=== PATIENT | female | born 2000 | race Asian ===

== ENCOUNTER → 2023-09-29 17:22 | Outpatient (REF) | payer OTHER, SELFPAY | LOC: PAVMRI 17:22 | PROVIDERS: ATTENDING PHYSICIAN Physician Assistant Medical | DX: G43.711 Chronic migraine without aura, intractable, with status migrainosus (principal) | CPT/HCPCS: 70551 ==

== ENCOUNTER 2024-06-21 15:23 | Emergency (ER) | payer OTHER, SELFPAY ==
[2024-06-21 15:24] VITALS: BP 112/78
--- NOTE | 2024-06-21 15:46 | ED.GENMED ---
History of Present Illness
General
Chief Complaint: Vaginal Bleeding
Source: patient
Exam Limitations: none
Time Seen by Provider: 06/21/24 15:38
History of Present Illness
History of Present Illness:
See MDM
Past History
Past History
ED Past Medical History: Asthma and Other (Bipolar)
ED Past Surgical History: Appendectomy
Social History
Tobacco: Former smoker
Alcohol: None
Drug: None
Personal: Single
Living: with family
Employment: Employed
Family History
Family History: Diabetes and Other
Phy Exam
Physical Exam
Physical Exam:
See MDM
Course
Orders/Labs/Results
Orders:
Orders
06/21/24 15:44
Test Result ONCE
US Pelvis W Transvag Combined Urgent
Reason For Exam: vaginal bleeding
06/21/24 15:52
Complete Blood Count/With Diff Urgent
06/21/24 16:22
Comprehensive Metabolic Panel Urgent
HCG, Serum Qualitative Screen Urgent
TSH Reflex To Free T4 Urgent
Abnormal Lab Results
06/21/24 06/21/24
15:52 16:22
Abs Immat Gran (auto) 0.1 H 10^3/uL
(0-0.05)
BUN 19 H mg/dl
(7-17)
06/21/24 15:52
06/21/24 16:22
Vital Signs
Initial and Last Documented VS:
Initial Vital Signs
Temp Pulse Resp BP Pulse Ox
97.9 F 93 16 112/78 93
06/21/24 15:24 06/21/24 15:24 06/21/24 15:24 06/21/24 15:24 06/21/24 15:24
Last Documented Vital Signs
Temp Pulse Resp BP Pulse Ox
97.9 F 84 14 105/73 98
06/21/24 15:24 06/21/24 18:22 06/21/24 18:22 06/21/24 18:22 06/21/24 18:22
MDM/Problems Addressed
Differential Diagnosis Includes:
HPI and MDM Narrative:
24-year-old female presenting for heavy menstrual bleeding. Patient is on day 2 of her menstrual cycle. She noted a large clot earlier in the morning. She called her FORESTRY AIDE and she was sent into the emergency department for evaluation. Patient
denies any significant pain but she complains of abdominal cramping. Patient is pretty certain that she is not but is unsure. She is not on blood thinners.
We did discuss that this could be menorrhagia. Will obtain basic blood work to rule out any evidence of hypothyroidism or anemia. Will obtain pelvic ultrasound looking for any evidence of mass or fibroid
Physical exam
General: Well appearing and non-toxic
HEENT: protecting airway
Neck: appears supple
CV: No evidence of cyanosis
Resp: No accessory muscle use
Abd: Non-distended. Soft and nontender
Extremities: No deformities
Neuro: alert
Psych: Normal affect
Skin: Intact
Problems Addressed including Acute and Chronic Conditions affecting care:
1. Heavy menstrual bleeding
Acuity: acute
Prognosis: stable
Details: Likely in setting of menorrhagia. Will obtain hemoglobin and thyroid testing. Will obtain ultrasound to rule out any evidence of uterine mass
Updates
No significant bleeding while in the emergency department. Blood work without clinical significance and ultrasound negative. Patient feels comfortable going home
Differential Diagnosis (but not limited to): Uterine fibroid, menorrhagia
Testing considered: CT abdomen/pelvis with there is no tenderness on exam
Drug therapy (if applicable): OTC meds, please see d/c instruction regarding Rx drugs
Amount and/or Complexity of Data Reviewed
Clinical info obtained from: Patient
External data reviewed: N/A
Labs I independently reviewed (but not limited to): Hemoglobin stable
Radiology: Ultrasound report reviewed
Pulse Ox: not hypoxic
EKG independently reviewed: N/A
Csr Technician: N/A
Critical Care: N/A
Risk of Complication:
Social Determinants of health: Good social support
Discussed with other providers: N/A
Escalation of Care includes Admit/Obs: After being observed in the Emergency Department, pt stable for discharge.
Occasional wrong word or 'sound a like' substitutions may have occurred due to the inherent limitations of voice recognition software. Read the chart carefully and recognize, using context, where substitutions have occurred.
*Critical Care Note
Total Time (30-74mins, 75-104mins- exclusive of procedures): Not Applicable
ED Attending Note
-
Portions of this chart may have been created with voice recognition software.� Occasional wrong word or��sound alike� substitutions may have occurred due to the inherent limitations of voice recognition software.
Discharge Plan
Departure
Patient Disposition: Home (Routine Discharge)
Date of Disposition: 06/21/24
Time of Disposition: 18:52
Patient with high blood pressure during this ER visit?: No
Discharge Problem:
Menorrhagia
Instructions: Heavy Periods (DC)
Prescriptions:
No Action
albuterol sulfate 1 PUFF HFA aerosol inhaler
2 puff inhalation R Q4HPRN PRN (Reason: when nebulizer is not avail)
Patient Comments:
06/20/18 Pt reports using nebulizer if she is at home and using inhaler while she is out.
acetaminophen 325 MG tablet
650 mg PO Q4HPRN PRN (Reason: mild pain) Qty: 1 0RF
ibuprofen 200 MG tablet
400 - 600 mg PO Q6HPRN PRN (Reason: moderate pain) Qty: 1 0RF
oxycodone 5 MG tablet
5 mg PO Q4HPRN PRN (Reason: breakthrough/severe pain) Qty: 10 0RF
Referrals:
Zay Lanier, [Family Provider] -
Activity Restrictions/Additional Instructions:
Please return for any worsening symptoms.
You may return at any time if you have further concerns.
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
Thank you for choosing [facility].
Interventions
Interventions:
*Risk Screen - Suicide Last Done: 06/21/24 15:24
*Neglect/Abuse Screening Last Done: 06/21/24 15:24
ED- Fall Risk Assessment Last Done: 06/21/24 16:00
ED-Female Genitourinary Assessment Last Done: 06/21/24 16:00
Discharge Date and Time
Print Language: BULGARIAN
[2024-06-21 15:59] VITALS: BMI 25.0
[2024-06-21 16:12] LABS: % Basophils 0.7 % (0-2); % Eosinophils 4.8 % (0-6); % Immature Granulocytes 0.5 % (0-0.5); % Lymphocytes 28.9 % (20.5-51.1); % Neutrophils 59.1 % (42.2-75.2); Absolute Basophils 0.1 10^3/uL (0-0.2); Absolute Eosinophils 0.5 10^3/uL (0-0.7); Absolute Immature Granulocytes 0.1 10^3/uL (0-0.05); Absolute Lymphocytes 3.1 10^3/uL (1.2-3.4); Absolute Monocytes 0.6 10^3/uL (0.1-0.6); Absolute Neutrophils 6.3 10^3/uL (1.4-6.5); Hematocrit 37.9 % (37.0-47.0); Hemoglobin 13.2 g/dL (12.0-16.0); Mean Corp Hgb Conc. 34.8 g/dL (33.0-37.0); Mean Corpuscular Hgb 30.3 pg (27.0-31.0); Mean Corpuscular Volume 86.9 fL (81.0-99.0); Mean Platelet Volume 9.6 fL (7.4-10.4); Nucleated Red Blood Cells % 0 %; Platelet Count 374 10^3/uL (130-400); Red Blood Cell Count 4.36 10^6/uL (4.20-5.40); Red Cell Dist. Width 11.5 % (11.5-14.5); White Blood Cell Count 10.6 10^3/uL (4.8-10.8)
[2024-06-21 16:20] VITALS: BP 101/61
[2024-06-21 16:50] LABS: HCG, Serum Qualitative Screen Negative
[2024-06-21 16:54] LABS: ALT (SGPT) 18 U/L (0-35); AST (SGOT) 24 U/L (14-36); Albumin 4.4 g/dl (3.5-5.0); Alkaline Phosphatase 63 U/L (38-126); Blood Urea Nitrogen 19 mg/dl (7-17); Calcium 9.1 mg/dl (8.4-10.2); Carbon Dioxide 24 mmol/L (22-30); Chloride 101 mmol/L (98-107); Estimated Creatinine Clearance 80 ml/min; Glucose 86 mg/dl (70-99); Potassium 3.9 mmol/L (3.5-5.1); Sodium 138 mmol/L (135-145); Total Bilirubin 0.2 mg/dl (0.2-1.3); Total Protein 7.2 g/dl (6.3-8.2); eGFR > 60.00
[2024-06-21 17:00] VITALS: BP 107/71
[2024-06-21 18:00] VITALS: BP 105/73
[2024-06-21 18:22] VITALS: BP 105/73
== END 2024-06-21 19:05 | disposition home or self-care (01) ==
LOC: EMR 15:23
PROVIDERS: EMERGENCY PHYSICIAN Student in an Organized Health Care Education/Training Program; FAMILY PHYSICIAN Family Medicine
DX: N92.0 Excessive and frequent menstruation with regular cycle (principal); J45.909 Unspecified asthma, uncomplicated; F31.9 Bipolar disorder, unspecified; Z87.891 Personal history of nicotine dependence; Z83.3 Family history of diabetes mellitus; Z90.49 Acquired absence of other specified parts of digestive tract
CPT/HCPCS: 99284; 76830; 76856; 80053; 84443; 84703; 85025

== ENCOUNTER → 2024-09-14 09:12 | Outpatient (REF) | payer OTHER, SELFPAY | LOC: HWRAD 09:12 | PROVIDERS: ATTENDING PHYSICIAN Nurse Practitioner Family; FAMILY PHYSICIAN Family Medicine | DX: Z34.90 Encounter for supervision of normal pregnancy, unspecified, unspecified trimester (principal) | CPT/HCPCS: 76801 ==

== ENCOUNTER → 2024-10-18 08:06 | Outpatient (REF) | payer OTHER, SELFPAY | LOC: PNTC 08:06 | PROVIDERS: ATTENDING PHYSICIAN Student in an Organized Health Care Education/Training Program | DX: Z36.0 Encounter for antenatal screening for chromosomal anomalies (principal); Z36.82 Encounter for antenatal screening for nuchal translucency | CPT/HCPCS: 76801; 76813 ==

== ENCOUNTER → 2024-11-07 07:56 | Outpatient (REF) | payer OTHER, SELFPAY | LOC: PNTC 07:56 | PROVIDERS: ATTENDING PHYSICIAN Obstetrics & Gynecology | DX: O99.320 Drug use complicating pregnancy, unspecified trimester (principal); F31.9 Bipolar disorder, unspecified; O99.342 Other mental disorders complicating pregnancy, second trimester; Z36.3 Encounter for antenatal screening for malformations | CPT/HCPCS: 76805 ==

== ENCOUNTER → 2024-12-05 06:59 | Outpatient (REF) | payer OTHER, SELFPAY | LOC: PNTC 06:59 | PROVIDERS: ATTENDING PHYSICIAN Student in an Organized Health Care Education/Training Program | DX: O35.5XX0 Maternal care for (suspected) damage to fetus by drugs, not applicable or unspecified (principal); O99.332 Smoking (tobacco) complicating pregnancy, second trimester; O99.342 Other mental disorders complicating pregnancy, second trimester; Z36.3 Encounter for antenatal screening for malformations; O99.52 Diseases of the respiratory system complicating childbirth | CPT/HCPCS: 76811; 76817 ==

== ENCOUNTER → 2025-03-15 08:00 | Outpatient (REF) | payer OTHER, SELFPAY ==
--- NOTE | 2025-03-15 07:36 | PN.DIAED06 ---
Meal Plan - Gestational
- Breakfast
Gestational Diabetes Meal Plan Name: 1800 calories
Breakfast - Total Carbohydrate (grams): 30 (2 carb servings: 15 grams each)
Breakfast - Starch Carbohydrate: 1
Breakfast - Fruit Carbohydrate: 0 (no fruit or juice before noon)
Breakfast - Milk Carbohydrate: 1
Breakfast - Nonstarchy Vegetables: Yes
Breakfast - Meat/Protein: 1 (protein = 1 oz)
Breakfast - Fat: 2 (fat = 5 g)
- Morning Snack
Morning Snack - Total Carbohydrate (grams): 30 (2 carb servings: 15 grams each)
Morning Snack - Starch Carbohydrate: 1
Morning Snack - Fruit Carbohydrate: 0 (no fruit or juice before noon)
Morning Snack - Milk Carbohydrate: 1
Morning Snack - Nonstarchy Vegetables: Yes
Morning Snack - Meat/Protein: 0.5
Morning Snack - Fat: 0
- Lunch
Lunch - Total Carbohydrate (grams): 45 (3 carb servin grams each)
Lunch - Starch Carbohydrate: 2
Lunch - Fruit Carbohydrate: 1
Lunch - Milk Carbohydrate: 0
Lunch - Nonstarchy Vegetables: Yes
Lunch - Meat/Protein: 2
Lunch - Fat: 1
- Afternoon Snack
Afternoon Snack - Total Carbohydrate (grams): 30 (2 carb servings: 15 grams each)
Afternoon Snack - Starch Carbohydrate: 1
Afternoon Snack - Fruit Carbohydrate: 1
Afternoon Snack - Milk Carbohydrate: 0
Afternoon Snack - Nonstarchy Vegetables: Yes
Afternoon Snack - Meat/Protein: 1
Afternoon Snack - Fat: 0
- Dinner
Dinner - Total Carbohydrate (grams): 45 (3 carb servin grams each)
Dinner - Starch Carbohydrate: 2
Dinner - Fruit Carbohydrate: 0
Dinner - Milk Carbohydrate: 1
Dinner - Nonstarchy Vegetables: Yes
Dinner - Meat/Protein: 2
Dinner - Fat: 2
- Evening Snack
Evening Snack - Total Carbohydrate (grams): 30 (2 carb servings: 15 grams each)
Evening Snack - Starch Carbohydrate: 1
Evening Snack - Fruit Carbohydrate: 0
Evening Snack - Milk Carbohydrate: 1
Evening Snack - Nonstarchy Vegetables: Yes
Evening Snack - Meat/Protein: 1
Evening Snack - Fat: 1
--- NOTE | 2025-03-15 08:50 | PN.DE ---
Diabetes Education
- -
03/15/2025 GESTATIONAL DIABETES CONSULTATION
Met with patient today for medical nutrition therapy. G2,Tess, currently at 34 weeks of gestation, with an IDALIA of 04/24/2025. She states she had her OGTT by 26 weeks.
Explained glucose metabolism in body and what occurs during to cause increase blood sugar. Discussed importance of keeping BS well controlled to avoid complications to the baby during and after (macrosomia, hypoglycemia). Discussed
macronutrients, provided with 1800 adan GDM meal plan. She admits to some feelings of hypoglycemia, I explained the importance of eating snacks for glucose and nutrients for herself and the baby, and to avoid rebound hyperglycemia.
Discussed physical activity, states she does not exercise because she is on her feet 10 hours a day. I emphasized the importance of exercise in keeping glucose low, especially if postprandial glucose is elevated. She verbalized understanding.
She purchased a glucometer from [employer] and has been checking her glucose, but did not bring the glucometer to her appointment and declined a demonstration. Her fasting glucose has been 90-96 mg/dL. States she has changed her diet but was
experimenting with higher carb meals to see how high her glucose would rise 2 hours after eating. When she is higher in protein her glucose is 110-120 2 hours postprandial, and 160-170 mg/dL 2 hours PP when she has a higher carbohydrate meal. She
stated that her glucose has not been in the 160-170 mg/dL range often. She is aware to test FBS and 2 hr pp each meal. Expected results for FBS <90 mg/dL (up to 95 acceptable) and 2 hr pp <120 mg/dL.
She has a coupon for 2 Freestyle Sameera 3 (not 3+) samples, and requests a prescription sent to her preferred pharmacy of [facility] in [place]. She states she will either pay hernandez for the Sameera 3 or use her glucometer for the remainder of her
after her sensors are used.
Log sheet provided for her to record results, she will send a 3-day meal log with all her FBG and 2hr Post prandial glucose numbers to this office for review. In addition, she [facility]. She
was encouraged to reach out should she require insulin.
== END ==
LOC: DES 08:00
PROVIDERS: ATTENDING PHYSICIAN Obstetrics & Gynecology
DX: O24.419 Gestational diabetes mellitus in pregnancy, unspecified control (principal)
CPT/HCPCS: 99078

== ENCOUNTER 2025-03-27 07:06 | Observation (INO) | payer OTHER, SELFPAY ==
[2025-03-27 07:23] VITALS: BP 104/67; BMI 31.2
[2025-03-27 07:57] LABS: Urine Character Clear (Clear)
[2025-03-27 08:40] LABS: Urine Squamous Cell >30 /LPF (Few)
[2025-03-27 08:42] LABS: Urine Red Blood Cell 0-2 /HPF (0-2)
== END 2025-03-27 09:48 | disposition home or self-care (01) ==
LOC: LDRP 07:06
PROVIDERS: Obstetrics & Gynecology; ADMITTING PHYSICIAN Obstetrics & Gynecology; FAMILY PHYSICIAN Family Medicine
DX: O47.03 False labor before 37 completed weeks of gestation, third trimester (principal); O24.419 Gestational diabetes mellitus in pregnancy, unspecified control; Z3A.36 36 weeks gestation of pregnancy
CPT/HCPCS: 76816; 81003; 81015; 87070; 87086; G0378

== ENCOUNTER 2025-04-04 02:04 | Inpatient (IN) | payer OTHER, SELFPAY ==
[2025-04-04 02:11] VITALS: BMI 31.2
[2025-04-04 02:22] VITALS: BP 107/66
[2025-04-04 03:35] LABS: Glucose - Point of Care 91 mg/dl (70-99)
[2025-04-04 03:48] LABS: Hematocrit 35.9 % (37.0-47.0); Hemoglobin 12.4 g/dL (12.0-16.0); Mean Corp Hgb Conc. 34.5 g/dL (33.0-37.0); Mean Corpuscular Volume 87.6 fL (81.0-99.0); Nucleated Red Blood Cells % 0 %; Platelet Count 191 10^3/uL (130-400); Red Cell Dist. Width 12.2 % (11.5-14.5)
[2025-04-04] MEDS: LR 1000 IV ×3 (03:53→13:00)
[2025-04-04 07:24] LABS: Glucose - Point of Care 84 mg/dl (70-99)
[2025-04-04] MEDS: SUBLIMAZE 100 MCG EPIDURAL (09:12)
[2025-04-04] MEDS: FENTANYL/BUPIVACAINE 100 EPIDURAL ×2 (09:19→17:37)
[2025-04-04 11:27] LABS: Glucose - Point of Care 80 mg/dl (70-99)
[2025-04-04] MEDS: TUMS CHEWABLE TABLET 400 MG PO (13:04)
[2025-04-04 14:15] LABS: Glucose - Point of Care 74 mg/dl (70-99)
[2025-04-04] MEDS: PITOCIN 30 UNITS/NSS 500 ML IV (14:15)
[2025-04-04 16:45] LABS: Glucose - Point of Care 70 mg/dl (70-99)
[2025-04-04] MEDS: LR IV (20:13)
[2025-04-04] MEDS: COLACE PO (20:13)
[2025-04-04] MEDS: MOTRIN 600 MG PO (20:28)
[2025-04-04] MEDS: TYLENOL 650 MG PO (20:28)
[2025-04-04] MEDS: LAMICTAL PO (22:29)
[2025-04-04] MEDS: PRENATAL PLUS PO (22:30)
[2025-04-05] MEDS: MOTRIN 600 MG PO ×3 (03:38→19:20)
[2025-04-05] MEDS: TYLENOL 650 MG PO ×3 (03:38→19:21)
[2025-04-05 05:14] LABS: Hematocrit 34.6 % (37.0-47.0); Hemoglobin 12.0 g/dL (12.0-16.0)
[2025-04-05] MEDS: COLACE 100 MG PO (07:57)
[2025-04-05 15:47] LABS: Syphilis/T. pallidum Ab Reflex Negative (Negative)
[2025-04-05] MEDS: COLACE PO (20:10)
[2025-04-05] MEDS: PRENATAL PLUS 1 TABLET PO (22:14)
[2025-04-05] MEDS: LAMICTAL 100 MG PO (22:14)
[2025-04-06] MEDS: TYLENOL 650 MG PO (02:21)
[2025-04-06] MEDS: MOTRIN 600 MG PO (02:21)
[2025-04-06] MEDS: COLACE PO (08:33)
== END 2025-04-06 10:52 | disposition home or self-care (01) | DRG 807 ==
LOC: LDRP 02:04
PROVIDERS: Obstetrics & Gynecology; ADMITTING PHYSICIAN Obstetrics & Gynecology
PROC: 0UQMXZZ Repair Vulva, External Approach (ICD-10-PCS; 2025-04-04)
PROC: 10E0XZZ Delivery of Products of Conception, External Approach (ICD-10-PCS; 2025-04-04)
PROC: 10907ZC Drainage of Amniotic Fluid, Therapeutic from Products of Conception, Via Natural or Artificial Opening (ICD-10-PCS; 2025-04-04)
DX: O24.420 Gestational diabetes mellitus in childbirth, diet controlled (principal); Z37.0 Single live birth; Z3A.37 37 weeks gestation of pregnancy; O69.81X0 Labor and delivery complicated by cord around neck, without compression, not applicable or unspecified; O71.82 Other specified trauma to perineum and vulva; F31.9 Bipolar disorder, unspecified; O99.344 Other mental disorders complicating childbirth; O99.334 Smoking (tobacco) complicating childbirth; F17.290 Nicotine dependence, other tobacco product, uncomplicated; J45.909 Unspecified asthma, uncomplicated; Z88.8 Allergy status to other drugs, medicaments and biological substances; Z91.013 Allergy to seafood
CPT/HCPCS: 82962; 85014; 85018; 85025; 86780; 86850; 86900; 86901; 87491; 87591